=== PATIENT | female | born 1960 | race Caucasian/White ===

== ENCOUNTER 2022-01-20 11:39 | Emergency (ER) | payer BC, SELFPAY ==
[2022-01-20] VITALS (10 sets, daily range): BP systolic 115–151; BP diastolic 59–76; PULSE 76–89; RESP 16; TEMP 37; O2SAT 97–99; BMI 29.7
--- NOTE | 2022-01-20 11:50 | DI.RAD.S_ITS ---
PROCEDURE: XR ANKLE RT MIN 3V INDICATIONS: fall, +deformity TECHNIQUE: 3 views of the ankle were acquired. COMPARISON: None. FINDINGS: Bones: Oblique fractures through the medial and lateral malleolus with complete ankle mortise disruption and lateral/posterior subluxation of the talus relative to the tibia Soft tissues: No tibiotalar joint effusion. Achilles tendon appears normal. IMPRESSION: Bimalleolar fracture with complete ankle mortise disruption and subluxation Approved by: Bryce Woods M.D. on 01/20/2022 at 11:46
--- NOTE | 2022-01-20 13:01 | ED.FALL ---
HPI - Fall <ADAMARIS Julio - Last Filed: 01/20/22 14:27> General Chief Complaint: Fall Stated Complaint: GLF Time Seen by Provider: 01/20/22 12:55 History of Present Illness HPI Narrative: 62-year-old female, nonsmoker, presents to the emergency department with right ankle pain secondary to stepping over a gas pump hose earlier today. Patient tripped and fell and twisted her right ankle. Patient was brought in by EMS, who controlled her pain with fentanyl 100 mg. Right leg is swollen and deformed but neurovascularly intact. Related Data Previous Rx's Medication Instructions Recorded ondansetron 4 mg disintegrating 4 mg PO Q8H PRN nausea and 01/20/22 tablet vomiting #10 tabs oxycodone-acetaminophen 5 mg-325 1 tab PO Q6H PRN pain #10 tabs 01/20/22 mg tablet (Percocet) Allergies Allergy/AdvReac Type Severity Reaction Status Date / Time codeine Allergy Intermediate Vomiting Verified 01/20/22 13:07 Review of Systems <ADAMARIS Julio - Last Filed: 01/20/22 14:27> Review of Systems Narrative: Narrative: GENERAL: Denies chills, fatigue, fever, sweats. See HPI HEENT: Denies sinus pain, ear pain, sore throat, difficulty swallowing, dizziness. RESPIRATORY: Denies dyspnea, cough, wheezing, sputum. CARDIOVASCULAR: Denies chest pain, palpitations, edema. GASTROINTESTINAL: Denies nausea, vomiting, abdominal pain, diarrhea, constipation. : Denies dysuria, frequency, incontinence, hematuria, urinary retention, flank pain. MSK: Endorses 7/10 right ankle pain. SKIN: Denies rash, skin lesions, or pruritis. NEUROLOGIC: Denies weakness, dizziness, headache, numbness, confusion. PSYCHIATRIC: No concerning psychosocial issues. Exam <ADAMARIS Julio - Last Filed: 01/20/22 14:27> Narrative Exam Narrative: Exam Narrative: GENERAL: This is a well-nourished, well-developed patient, in no acute distress HEAD: Atraumatic. Normocephalic. EYES: Pupils equal round and reactive. Extraocular motions intact. No scleral icterus, injection or drainage. ENT: Nose without bleeding, purulent drainage. Throat without erythema, tonsillar hypertrophy or exudate. Airway patent. NECK: Trachea midline. No JVD or lymphadenopathy. Nontender. CARDIOVASCULAR: Regular rate and rhythm without murmurs, peripheral pulses intact, cap refill <2 sec. RESPIRATORY: Breath sounds equal and clear bilaterally. No wheezes, rales, or rhonchi. No cough. No increased respiratory effort. No accessory muscle use. GASTROINTESTINAL: Abdomen soft, non-tender, nondistended without guarding or rebound. No suprapubic pain. MSK: Moves all extremities. Neurovascularly intact. Right ankle is swollen deformed. NEURO: A&O x 3. SKIN: Warm, dry, no rashes or lesions noted. Initial Vital Signs Initial Vital Signs: Vital Signs Pulse Oximetry 99 01/20/22 11:43 Reviewed Extrem Other: ANKLE: There is swelling and asymmetry, but no bruising. There is tenderness to general palpation. Sensation grossly intact. There is tenderness over the medial, lateral malleolus, but not the proximal tibia/fibula. The anterior mortise is tender. Flexion and extension is intact. Unable to test for stability or laxity due to pain. The contralateral ankle exam is unremarkable. <Tristan Barr MD - Last Filed: 02/02/22 12:15> Initial Vital Signs Initial Vital Signs: Vital Signs Pulse Oximetry 99 01/20/22 11:43 Procedures <ADAMARIS Julio - Last Filed: 01/20/22 14:27> Orthopedic Splinting/Casting Injury #1: Side: right Lower Extremity Immobilizer: posterior splint and stirrup splint Other Orthopedic Equipment: crutches Post splinting neuro exam: intact Post splinting vascular exam: intact Placed by: Provider Course <ADAMARIS Julio - Last Filed: 01/20/22 14:27> Orders Ordered: Discontinued Medications Hydromorphone HCl (Hydromorphone 1 Mg Inj) 1 mg IV NOW ONE Stop: 01/20/22 13:04 Last Admin: 01/20/22 13:06 Dose: 1 mg Documented By: RL Consultations Consultation #1: Dr. Ortez, Orthopedics, recommended a posterior short-leg splint with stirrups, crutches, and call Orthopedics in the morning for evaluation eventual surgery. Vital Signs Vital signs: Vital Signs - 8 hr 01/20/22 11:46 Temperature 98.6 F Pulse Rate 87 Respiratory Rate 16 Blood Pressure 151/76 H Pulse Oximetry 99 Oxygen Delivery Method Room Air <Tristan Barr MD - Last Filed: 02/02/22 12:15> Orders Ordered: Discontinued Medications Hydromorphone HCl (Hydromorphone 1 Mg Inj) 1 mg IV NOW ONE Stop: 01/20/22 13:04 Last Admin: 01/20/22 13:06 Dose: 1 mg Documented By: RL Vital Signs Vital signs: Vital Signs - 8 hr 01/20/22 11:46 Temperature 98.6 F Pulse Rate 87 Respiratory Rate 16 Blood Pressure 151/76 H Pulse Oximetry 99 Oxygen Delivery Method Room Air MDM - Fall <Gerson ADAMARIS Richter - Last Filed: 01/20/22 14:27> Differential Diagnosis Differential diagnosis: Likely other (Ankle fracture) Imaging Data Extremity x-ray #1: Radiologist's Impression: [address] [address] XRay Report Signed Patient: Pretty Mcmanus MR#: [id number] : 1960 Acct:[id number] Age/Sex: 62 / F Date of Service: 01/20/22 Loc: ED Accession Number: [id number] ?? Procedure: XR ankle RT min 3V Ordering Provider: Tristan Barr MD PROCEDURE:? XR ANKLE RT MIN 3V ? INDICATIONS:? fall, +deformity ? TECHNIQUE:? 3 views of the ankle were acquired.? ? COMPARISON:? None. ? FINDINGS:? ? Bones:? Oblique fractures through the medial and lateral malleolus with complete ankle mortise disruption and lateral/posterior subluxation of the talus relative to the tibia ? Soft tissues:? No tibiotalar joint effusion.? Achilles tendon appears normal.? ? ? IMPRESSION:? ? Bimalleolar fracture with complete ankle mortise disruption and subluxation ? Approved by: Bryce Woods M.D. on 01/20/2022 at 11:46? [facility] Narrative Medical decision making narrative: 62-year-old female that presents emergency department with right ankle pain after tripping on a gas station hose, has a by malleolar fracture. Discussion with Dr. Stover of Orthopedics recommended a posterior short-leg splint with stirrups and crutches. Patient to follow up with Orthopedics in the morning. Recommended NSAIDs and rice. We will discharge home with pain medication and antinausea medication. Discussed return precautions and plan of care with patient and sister, who were agreeable with course of action. Discharge Plan Departure Patient Disposition: Home Clinical Impression: Ankle fracture, bimalleolar, closed Instructions: DI for Ankle Fracture Activity Restrictions/Additional Instructions: *You have been diagnosed with a right ankle fracture. We have placed her foot in splint and I would like you to elevated above your heart and apply ice as much as possible over the next 24 hours. You may take ibuprofen 600 mg 3 times a day with food to help with the swelling and minor pain control. I am prescribing a pain medication for breakthrough pain and to help you sleep. In the off chance the pain medication makes you nauseous, I am prescribing a antinausea medication. Please call the orthopedic doctor tomorrow morning to coordinate evaluation and eventual surgery. For worsening symptoms, please return to the emergency department. *What to do: *Please continue to take your regular medications as directed. [ ] New medication prescriptions sent to your pharmacy: [ ] [x ] New medication written as a paper prescription [ ] No new medications given *Please follow up with your primary care provider in 2-3 days, call for an appointment. Let them know you were seen in the Emergency Department and that we ask that you be seen in follow up. We will electronically transmit a record of today's note if your PCP is in our system *If you do not have a primary care provider please contact the [facility] Resource line at [phone]. They will ask some questions about your medical history and help get you set up with a doctor in the community. ? Return to ER if you should have any new, worsening or concerning symptoms, such as worsening pain, severe headache, confusion, chest pain, difficulty breathing, fever greater than 101 F, shaking chills, persistent vomiting to the point that you cannot drink fluids, or other new or worsening symptoms. Prescriptions: New oxycodone-acetaminophen [Percocet] 5-325 mg tablet 1 tab PO Q6H PRN (Reason: pain) Qty: 10 0RF ondansetron 4 mg tablet,disintegrating 4 mg PO Q8H PRN (Reason: nausea and vomiting) Qty: 10 0RF Referrals: Leonor Ortez MD [Physician] - Visit Report Forms: Patient Portal/API <Tristan Barr MD - Last Filed: 02/02/22 12:15> Cosign ED Attending Cosignature Attestation: I was immediately available in the department for consultation. This documentation has been reviewed and I agree with assessment and plan. Supervised by Tristan Barr MD
[2022-01-20] MEDS: HYDROMORPHONE 1 MG INJ IV (13:06)
[2022-01-20] MEDS: ONDANSETRON 4 MG/2 ML INJ (14:35)
== END 2022-01-20 14:55 | disposition home or self-care (01) ==
PROVIDERS: Emergency Provider Registered Nurse
DX: S82.842A Displaced bimalleolar fracture of left lower leg, initial encounter for closed fracture (principal); W01.0XXA Fall on same level from slipping, tripping and stumbling without subsequent striking against object, initial encounter
CPT/HCPCS: 73610; 96374; 96375; 99283; 99284; J1170; J2405

== ENCOUNTER → 2023-04-09 08:36 | Outpatient (CLI) | payer BC, SELFPAY ==
[2023-04-09 09:36] LABS: Add Manual Diff / Slide Review NO; Basophils Absolute Auto 0 /uL (0-100); Basophils Percent Auto 0.6 % (0-2); Eosinophils Absolute Auto 300 /uL (0-450); Hematocrit 38.3 % (36-46); Lymphocytes Absolute Auto 1700 /uL (1100-4500); Lymphocytes Percent Auto 25.9 % (25-40); Mean Corpuscular HGB Conc 33.9 % (30-36); Mean Corpuscular Hemoglobin 30.6 PG (26-34); Mean Corpuscular Volume 90.3 fL (80-100); Monocytes Absolute Auto 700 /uL (0-900); Monocytes Percent Auto 11.3 % (3-14); Neutrophils Absolute Auto 3800 /uL (1500-7000); Neutrophils Percent Auto 58.2 % (50-75); Platelet Count 300 X10^3/uL (150-400); Red Blood Cell Count 4.25 X10^6/uL (4.0-5.2); White Blood Cell Count 6.5 X10^3/uL (4.5-11.0)
[2023-04-09 09:42] LABS: Hemoglobin A1C% w Est Avg Glu 5.2 % (4.0-6.0)
[2023-04-09 10:07] LABS: Alanine Aminotransferase 18 IU/L (<35); Albumin 4.4 g/dL (3.5-5.0); Albumin Globulin Ratio 1.2 (1.0-2.8); Alkaline Phosphatase 82 U/L (38-126); Aspartate Aminotransferase 25 IU/L (14-36); BUN Creatinine Ratio 18.4 (6-22); Bilirubin Total 0.4 mg/dL (0.2-1.3); Blood Urea Nitrogen 14 mg/dL (7-17); Calcium 9.7 mg/dL (8.4-10.2); Carbon Dioxide 24 mmol/L (22-32); Chloride 107 mmol/L (98-107); Cholesterol 275 mg/dL (140-199); Estimated Glomerular Filt Rate > 60 mL/min (>60); Globulin 3.7 g/dL (1.7-4.1); Glucose 81 mg/dL (80-110); HDL Cholesterol 65 mg/dL (40-60); HEMOLYSIS < 15 (0-50); LDL Cholesterol Calculated 155 mg/dL (<100); Potassium 4.3 mmol/L (3.4-5.1); Sodium 139 mmol/L (137-145); Total Protein 8.1 g/dL (6.3-8.2); Triglycerides 274 mg/dL (35-150)
[2023-04-09 10:29] LABS: TSH w/ Reflex to FT4 3.74 uIU/mL (0.47-4.68)
[2023-04-09 10:52] LABS: Vitamin B12 659 pg/mL (239-931)
== END ==
PROVIDERS: PCP Family Medicine; Referring Provider Family Medicine; Visit Provider Family Medicine
DX: E66.9 Obesity, unspecified (principal); R23.2 Flushing; L65.9 Nonscarring hair loss, unspecified; M25.50 Pain in unspecified joint
CPT/HCPCS: 36415; 80053; 80061; 82607; 83036; 84443; 85025

== ENCOUNTER 2024-07-15 10:24 | Day surgery (SDC) | payer BC, SELFPAY ==
[2024-07-15 10:43] VITALS: BMI 28.1
[2024-07-15 10:48] VITALS: BP 142/93; PULSE 88; RESP 16; TEMP 36.1; O2SAT 97
[2024-07-15] MEDS: SODIUM CHLORIDE 0.9% 1,000 ML 84 ML IV (10:55)
--- NOTE | 2024-07-15 11:48 | P.HP_ITS ---
History of Present Illness History of Present Illness Date Patient Seen: 07/15/24 Time Patient Seen: 11:48 Chief complaint: Screening Colonoscopy Narrative: Pretty is a 64 year old woman here for a colonoscopy. Her last one was about 10 years ago and she thinks maybe a polyp was removed. No family history of colon cancer. [facility] Medical History (Updated 07/15/24 @ 11:50 by Burton Sullivan MD) Hx of thyroid nodule (~2006) Surgical History (Updated 07/15/24 @ 10:16 by Oksana Brandon RN) Hx of hysterectomy (~2015) Social History Smoking Status: Never smoker Meds Home Medications and Allergies Home Medications Medication Instructions Recorded Confirmed Type estradiol 0.5 mg tablet 0.5 mg PO DAILY #30 tabs 03/29/24 Rx sodium,potassium,mag sulfates 17.5 See Rx Instructions PO .COMPLEX 06/08/24 Rx gram-3.13 gram-1.6 gram oral soln #354 mL (Suprep Bowel Prep Kit) Vitamin D3 2,000 unit PO DAILY 07/15/24 07/15/24 History [id number] carb-vit K 1 tab PO DAILY 07/15/24 07/15/24 History 18 mg iron-400 mcg-500 mg tablet (Women's Daily Formula) Allergies Allergy/AdvReac Type Severity Reaction Status Date / Time codeine Allergy Intermediate Vomiting Verified 04/09/23 08:02 adhesive Allergy Rash Verified 07/15/24 10:42 Exam Vital Signs (past 8 hours): - 07/15/24 10:48 Temperature 97.0 F L Pulse Rate 88 Respiratory Rate 16 Blood Pressure 142/93 H Pulse Oximetry 97 Oxygen Delivery Method Room Air Oxygen Delivery Method Room Air Const General: No acute distress Resp Effort & Inspection: normal respiratory effort Assessment & Plan Assessment and plan (1) Colon cancer screening: Status: Acute Plan Colonoscopy Time-Based Coding :: [TOTAL MINUTES] spent with patient and on the chart (including review of chart, obtaining history, exam, reviewing outside data, placing orders, documenting exam and treatment plan, and counseling patient) on [DATE].
--- NOTE | 2024-07-15 12:20 | PM.OP.COLON ---
Operative Date/Time/Diagnoses Date of procedure: 07/15/24 Time of procedure: 12:20 Pre-op diagnosis: Colon cancer screening Post-op diagnosis: same Procedure & Clinicians Study performed: Colonoscopy Same procedure as scheduled: Yes Surgeon: Burton Sullivan Procedure Notes Procedure in detail: Surgeon: Burton Sullivan MD Anesthesia: Noel Burgos D.O. Procedure: The patient was brought to the endoscopy suite, placed in left lateral decubitus position. The patient was connected to monitoring devices. A time-out was performed. Sedation was administered. Once the patient was adequately sedated, a digital rectal exam was performed and was normal. The scope was then inserted and advanced to the cecum where the appendiceal orifice was identified and photographed. The scope was then slowly withdrawn over greater than 6 minutes. The mucosa was thoroughly inspected. No abnormalities were identified. The scope was retroflexed in the rectum. The scope was straightened and removed. The patient was awakened and brought to recovery. Scope withdrawal time: 7 minutes Sedation time: 12 minutes EBL: 0 Findings: Normal colon Post-procedure Recommendations: Colonoscopy in 10 years Disposition: PACU
[2024-07-15 12:24] VITALS: BP 105/49; PULSE 79; RESP 12; TEMP 36.6; O2SAT 97
[2024-07-15 12:31] VITALS: BP 111/66; PULSE 79; RESP 18; TEMP 36.3; O2SAT 99
== END 2024-07-15 12:41 | disposition home or self-care (01) ==
PROVIDERS: PCP Family Medicine; Referring Provider Surgery; Visit Provider Surgery
PROC: 0DJD8ZZ Inspection of Lower Intestinal Tract, Via Natural or Artificial Opening Endoscopic (ICD-10-PCS; CPT 45378; principal; 2024-07-15 11:45)
DX: Z12.11 Encounter for screening for malignant neoplasm of colon (principal)
CPT/HCPCS: 45378; J2704

== ENCOUNTER → 2024-09-15 07:52 | Outpatient (CLI) | payer BC, SELFPAY ==
[2024-09-15 09:05] LABS: Alanine Aminotransferase 20 IU/L (<35); Albumin 4.4 g/dL (3.5-5.0); Albumin Globulin Ratio 1.3 (1.0-2.8); Alkaline Phosphatase 74 U/L (38-126); Aspartate Aminotransferase 26 IU/L (14-36); BUN Creatinine Ratio 24.2 (6-22); Bilirubin Total 0.4 mg/dL (0.2-1.3); Blood Urea Nitrogen 22 mg/dL (7-17); Calcium 9.7 mg/dL (8.4-10.2); Carbon Dioxide 22 mmol/L (22-32); Chloride 106 mmol/L (98-107); Cholesterol 271 mg/dL (140-199); Estimated Glomerular Filt Rate > 60 mL/min (>60); Globulin 3.3 g/dL (1.7-4.1); Glucose 106 mg/dL (80-110); HDL Cholesterol 73 mg/dL (40-60); HEMOLYSIS 22 (0-50); LDL Cholesterol Calculated 152 mg/dL (<100); Potassium 4.2 mmol/L (3.4-5.1); Sodium 138 mmol/L (137-145); Total Protein 7.7 g/dL (6.3-8.2); Triglycerides 232 mg/dL (35-150)
[2024-09-15 09:49] LABS: HIV 1 & 2 Ab/Ag 4th Gen Combo NEGATIVE (NEGATIVE); Hep C Virus Ab w/Reflex Quant NEGATIVE s/c (NEGATIVE)
== END ==
PROVIDERS: PCP Family Medicine; Referring Provider Family Medicine; Visit Provider Family Medicine
DX: Z00.00 Encounter for general adult medical examination without abnormal findings (principal); E78.5 Hyperlipidemia, unspecified
CPT/HCPCS: 36415; 80053; 80061; 86803; 87389